=== PATIENT | female | born 1985 ===

== ENCOUNTER 2023-09-13 11:52 | Outpatient (CLI) | payer BC, SELFPAY ==
--- NOTE | ~2023-09-13 | XR_ITS ---
XR lumbar spine 2-3V DATE: 09/13/2023 12:31 INDICATION: Low back pain TECHNIQUE: AP, lateral, cone-down lateral lumbosacral views COMPARISON: None FINDINGS: There is severe degenerative disease L5-S1. The lumbar interspaces appear well preserved. Minimal thoracolumbar dextroscoliosis. No fracture or bone destruction or spondylolisthesis. The incl uded lower thoracic and lumbar pedicles are intact. The sacral joints are intact. IMPRESSION: Severe degenerative disc disease at L5-S1 Reviewed, dictated and finalized at location A.
== END 2023-09-13 11:53 ==
LOC: MICIMG 11:56
PROVIDERS: PCP Chiropractor; Visit Provider Chiropractor
DX: M51.37 Other intervertebral disc degeneration, lumbosacral region (principal)
CPT/HCPCS: 72100

== ENCOUNTER 2024-04-15 08:19 | Outpatient (CLI) | payer BC, SELFPAY ==
--- NOTE | ~2024-04-15 | CT_ITS ---
Non-contrast CT scan of the Abdomen and Pelvis Clinical indication: Abdominal pain Technique: 2.5 mm axial scans were obtained through the abdomen and pelvis without intravenous or or al contrast. Dose reduction technique was used on this scan by utilizing automated exposure control a nd iterative reconstruction technique. The dose-length product (DLP) was 984.94 mGy-cm. Findings: Images through the lung bases reveal no abnormalities. There is no evidence of renal or ureteral calculi. The kidneys and the ureters are nondilated. The liver, spleen, pancreas, gallbladder, and adrenals appear normal. There is no aortic aneurysm. There is no evidence of bowel obstruction. Small fat-containing umbilical hernia present. Images through the pelvis were performed. There is no evidence of ascites or lymphadenopathy. Urinary bladder unremarkable. No pelvic mass seen. Impression: No significant abnormality seen. Small fat-containing umbilical hernia. Reviewed, dictated and finalized at [facility]. [employer] MANAGER Impression: No significant abnormality seen. Small fat-containing umbilical hernia.
== END 2024-04-15 08:20 | disposition home or self-care (01) ==
PROVIDERS: PCP Nurse Practitioner Family; Visit Provider Nurse Practitioner Family
DX: K42.9 Umbilical hernia without obstruction or gangrene (principal)
CPT/HCPCS: 74176